=== PATIENT | male | born 1990 | race Two or more races ===

== ENCOUNTER 2019-02-26 11:33 | Emergency (ER) | payer OTHER ==
[2019-02-26 11:58] VITALS: BP 131/81; PULSE 92; TEMP 98.2; BMI 25.8
[2019-02-26] MEDS ORDERED: DIPHTH,PERTUSS(ACELL),TET 0.5 ML DISP.SYRIN IM ONE ×2 (12:26→12:35)
--- NOTE | 2019-02-26 12:26 | PDOC ---
History of Present Illness - General Chief Complaint: Laceration Stated Complaint: LT. LEG LACERATION Time Seen by Provider: 02/26/19 12:12 History Source: Patient Exam Limitations: No Limitations - History of Present Illness Initial Comments: 02/26/19 12:27 Medial mid thigh laceration. States bumped table at work causing knife to fall from table and incised the medial aspect of his left midpoint 5. Denies numbness or tingling to foot, no other injury. Timing/Duration: 1-3 hours Severity: mild, moderate Associated Symptoms: reports: denies symptoms Past History - Travel Traveled outside of the country in the last 30 days: No Close contact w/someone who was outside of country & ill: No - Past Medical History Allergies/Adverse Reactions: Allergies Allergy/AdvReac Type Severity Reaction Status Date / Time No Known Allergies Allergy Verified 02/26/19 11:54 Home Medications: Ambulatory Orders NK [No Known Home Medication] 02/26/19 Anemia: No COPD: No CHF: No - Suicide/Smoking/Psychosocial Hx Smoking History: Never smoked Hx Alcohol Use: No Drug/Substance Use Hx: No Review of Systems - Review of Systems Able to Perform ROS?: Yes Is the patient limited French proficient: Yes Constitutional: Yes: Symptoms Reported, See HPI, Malaise HEENTM: No: Symptoms Reported Musculoskeletal: Yes: Symptoms Reported, See HPI, Muscle Pain Integumentary: Yes: Symptoms Reported, See HPI, Other (2 cm laceration) Neurological: No: Symptoms reported All Other Systems: Reviewed and Negative *Physical Exam - Vital Signs Last Vital Signs Temp Pulse Resp BP Pulse Ox 98.2 F 92 H 16 131/81 99 02/26/19 11:55 02/26/19 11:55 02/26/19 11:55 02/26/19 11:55 02/26/19 11:55 - Physical Exam General Appearance: Yes: Nourished, Appropriately Dressed, Apparent Distress, Mild Distress HEENT: positive: MAHOGANY, TMs Normal Neck: positive: Supple. negative: Tender Respiratory/Chest: positive: Lungs Clear Musculoskeletal: positive: Normal Inspection, Other (laceration along medial aspect of left midpoint by. No active bleeding,) Extremity: positive: Normal Capillary Refill, Normal Range of Motion Integumentary: positive: Normal Color, Dry, Warm Neurologic: positive: cage maker machine II-XII NML intact, Fully Oriented, Alert, Normal Response, Motor Strength 5/5 Procedures - Laceration/Wound Repair Left Medial Thigh Wound Length: to 2.5 cm Wound Explored: clean Wound's Depth, Shape: linear Irrigated w/ Saline: Yes Anesthesia: 1% Lidocaine Wound Repaired With: Sutures Suture Size/Type: 4:0 Number of Sutures: 5 (verticle mattress) Layer Closure: No Sterile Dressing Applied: Yes *DC/Admit/Observation/Transfer Diagnosis at time of Disposition: Laceration - Discharge Dispostion Disposition: HOME Condition at time of disposition: Stable Decision to Admit order: No - Referrals - Patient Instructions Printed Discharge Instructions: DI for Laceration Repair Additional Instructions: Rest, elevate, avoid strenuous activity or heavy lifting until sutures are removed Leave dressing on for the next 24 hours, Then may remove dressing gently and wash area with soap and water. Reapply bacitracin ointment and dressing daily for the next 5 days On day #6 keep the wound protected and cover as needed until sutures are removed allowing wound to start to dry May use Tylenol or Motrin for pain relief Suture removal in : 10- 14 Days Her tetanus/diphtheria/pertussis booster was updated today - Post Discharge Activity Forms/Work/School Notes: Back to Work
== END 2019-02-26 13:07 | disposition home or self-care (01) ==
LOC: JERFT 11:33
PROC: 3E0234Z Introduction of Serum, Toxoid and Vaccine into Muscle, Percutaneous Approach (ICD-10-PCS; principal; 2019-02-26)
PROC: 0HQJXZZ Repair Left Upper Leg Skin, External Approach (ICD-10-PCS; 2019-02-26)
DX: S71.112A Laceration without foreign body, left thigh, initial encounter (principal); W26.0XXA Contact with knife, initial encounter; Y93.H3 Activity, building and construction; Y92.69 Other specified industrial and construction area as the place of occurrence of the external cause; Y99.0 Civilian activity done for income or pay
CPT/HCPCS: 90715; 99282-25

== ENCOUNTER 2019-03-17 19:57 | Emergency (ER) | payer OTHER ==
[2019-03-17 20:23] VITALS: BP 145/89; PULSE 96; TEMP 100.1; BMI 24.3
--- NOTE | 2019-03-17 20:50 | PDOC ---
Suture Removal/Wound Check HPI - History of Present Illness Chief Complaint: Suture/Staple Removal(Here) Stated Complaint: SUTURE REMOVAL Time Seen by Provider: 03/17/19 20:29 History Source: Yes: Patient Exam Limitations: Yes: No Limitations Treated at: [facility] ED - Previous ED Treatment Type of procedure performed on last visit: Yes: Laceration Repair Tetanus Immunization: Yes: Up to Date Antibiotics Prescribed: No - Onset of Previous Treatment Comment:: 03/17/19 20:50 Patient here for suture removal. 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 Patient denies any pain, swelling or any problems with suture line Past History - Travel Traveled outside of the country in the last 30 days: No Close contact w/someone who was outside of country & ill: No - Past Medical History Allergies/Adverse Reactions: Allergies Allergy/AdvReac Type Severity Reaction Status Date / Time No Known Allergies Allergy Verified 02/26/19 11:54 Home Medications: Ambulatory Orders NK [No Known Home Medication] 02/26/19 Anemia: No COPD: No CHF: No - Suicide/Smoking/Psychosocial Hx Smoking History: Never smoked Hx Alcohol Use: No Drug/Substance Use Hx: No Suture Removal/Wound Check PE - Physical Exam Laceration/Wound Check Symptoms: reports: None Current Severity Level: None Maximum Severity Level: None Pain Localization: None *Review of Systems - Review of Systems Able to Perform ROS?: Yes Constitutional: Yes: See HPI. No: Symptoms Reported, Fever, Malaise HEENTM: No: Symptoms Reported Integumentary: Yes: Symptoms Reported, See HPI. No: Bruising, Rash All Other Systems: Reviewed and Negative *Physical Exam - Vital Signs Last Vital Signs Temp Pulse Resp BP Pulse Ox 100.1 F H 96 H 19 145/89 98 03/17/19 20:20 03/17/19 20:20 03/17/19 20:20 03/17/19 20:20 03/17/19 20:20 - Physical Exam General Appearance: Yes: Appropriately Dressed. No: Apparent Distress HEENT: positive: MAHOG[place], TMs Normal Neck: negative: Tender Gastrointestinal/Abdominal: positive: Soft Integumentary: positive: Normal Color, Dry, Warm, Other (well approximated suture line to left mid thigh with 5 intact sutures. 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 Patient tolerated well *DC/Admit/Observation/Transfer Diagnosis at time of Disposition: Visit for suture removal - Discharge Dispostion Disposition: HOME Condition at time of disposition: Stable Decision to Admit order: No - Referrals - Patient Instructions Printed Discharge Instructions: DI for Suture Removal Additional Instructions: Rest, avoid strenuous activity or exercise until scabbing is completely resolved May use bacitracin ointment until scabbing is gone After may use vitamin E oil, poke hole in vitamin E capsule and use oil from the capsule on wound- may help resolve some of the discoloration of the scar Keep wound out of the sun for at least one year to avoid darkening of scar tissue - Post Discharge Activity
== END 2019-03-17 20:50 | disposition home or self-care (01) ==
LOC: JERFT 19:57 → JER 19:57 → JERFT 20:50
DX: Z48.817 Encounter for surgical aftercare following surgery on the skin and subcutaneous tissue (principal); Z48.02 Encounter for removal of sutures
CPT/HCPCS: 99281-25

== ENCOUNTER 2021-04-30 22:16 | Emergency (ER) | payer SELFPAY ==
[2021-04-30 22:30] VITALS: BP 157/87; PULSE 88; TEMP 98.1; BMI 27.0
== END 2021-04-30 23:21 | disposition home or self-care (01) ==
LOC: JER 22:16
DX: S51.811A Laceration without foreign body of right forearm, initial encounter (principal)
CPT/HCPCS: 99283-25